=== PATIENT | male | born 2000 | race Two or more races ===

== ENCOUNTER 2021-10-15 13:08 | Emergency (ER) | payer SELFPAY ==
[~2021-10-15] VITALS: Ht 180.3 cm; Wt 81.6 kg
[2021-10-15] MEDS ORDERED: cefTRIAXone SOD 1,000 MG VL IM ONE (14:15)
[2021-10-15] MEDS ORDERED: IBUPROFEN 800 MG TAB PO ONE (14:15)
[2021-10-15 14:30] VITALS: BP 143/87
[2021-10-15] MEDS ORDERED: CLIN300C8 PO (14:53)
[2021-10-15] MEDS ORDERED: NAPR500T31 PO (14:53)
== END 2021-10-15 15:03 | disposition home or self-care (01) ==
LOC: ER 13:08
DX: S90.811D Abrasion, right foot, subsequent encounter (principal); X58.XXXD Exposure to other specified factors, subsequent encounter
CPT/HCPCS: 73630; 96372; 99283; J0696